=== PATIENT | male | born 1970 | race Caucasian/White ===

== ENCOUNTER 2021-12-21 15:04 | Emergency (ER) | payer SELFPAY ==
[2021-12-21 15:05] VITALS: BP 137/90; PULSE 109; RESP 21; TEMP 36.3; O2SAT 95
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
== END 2021-12-21 17:17 | disposition home or self-care (01) ==
LOC: ER 17:17
PROVIDERS: Emergency Provider Physician Assistant
DX: S80.212A Abrasion, left knee, initial encounter (principal); V22.4XXA Motorcycle driver injured in collision with two- or three-wheeled motor vehicle in traffic accident, initial encounter; Z63.4 Disappearance and death of family member
CPT/HCPCS: 99283; 99282

== ENCOUNTER 2021-12-21 16:37 | Emergency (ER) | payer SELFPAY ==
--- NOTE | 2021-12-21 17:30 | DI.CT_ITS ---
Exam(s) CT HEAD CERV SPINE FACIAL WO EXAM: CT HEAD CERV SPINE FACIAL WO COMPARISON: No exams were available for comparison FINDINGS: CT examination of the cervical spine was performed without contrast administration. There is no evidence of acute cervical spine fracture or dislocation. There are moderate degenerative changes of the cervical spine, most marked at C5-6 and C6-7 where the re is loss of disc height and endplate hypertrophic changes.. Tracheolaryngeal structures appear intact. No cervical mass or adenopathy. Noncontrast cranial CT was performed. Ventricular system is normal in appearance. No evidence of acute intracranial hemorrhage, mass effect, or midline shift. No calvarial fracture. The orbital and temporal bone structures appear intact. Visualized mastoid air cells and paranasal sinuses appear predominantly clear. CT of the facial bones was also obtained. No evidence of orbital facial fracture. Mild mucoperioste al thickening of the maxillary antra appears chronic. No evidence of free fluid. IMPRESSION: No evidence of acute cervical spine injury. No evidence of acute intracranial injury. No evidence of orbital facial injury. RADIATION DOSE DELIVERED: 2,622.8mGy.cm Total DLP 2,622.8mGy.cm Total DLP !Error CTDIvol DATA REPOSITORY: All CT scans at this facility are submitted to the National Radiology Data Registry (NRDR) Dose Index Registry (DIR) with the [employer] (A[employer]). RADIATION OPTIMIZATION: All CT scans at this facility use at least one of these dose optimization te chniques: automated exposure control; mA and/or kV adjustment per patient size (includes targeted exa ms where dose is matched to clinical indication); or iterative reconstruction.
[2021-12-21 17:39] VITALS: BP 137/90; PULSE 86; RESP 20; O2SAT 96
[2021-12-21] MEDS: LORazepam 1 MG TAB PO ×7 (17:45→19:08)
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
== END 2021-12-21 18:59 | disposition home or self-care (01) ==
PROVIDERS: Emergency Provider Physician Assistant
DX: S00.83XA Contusion of other part of head, initial encounter (principal); M25.562 Pain in left knee; V28.4XXA Motorcycle driver injured in noncollision transport accident in traffic accident, initial encounter; Z63.4 Disappearance and death of family member
CPT/HCPCS: 73562; 99284; 70450; 70486; 72125